=== PATIENT | male | born 1995 | race Caucasian/White ===

== ENCOUNTER 2020-08-11 14:23 | Emergency (ER) | payer BC ==
[~2020-08-11] VITALS: Ht 190.5 cm; Wt 68.5 kg
--- NOTE | 2020-08-11 14:44 | NUR ---
PROVIDER AT BEDSIDE
--- NOTE | 2020-08-11 14:47 | NUR ---
PT COMES IN C/O LEFT CHEST PAIN/TIGHTNESS/PALPITATIONS. PT STATES "I AM AWAKE AND CONSCIOUS AND CAN FEEL MY HEART BEATING FAST". PT DENIES ANY PAST MEDICAL HX. STATES HE HAS BEEN TOLD HE HAS HIGH BLOOD PRESSURE AND SHOULD FOLLOWUP WITH A PCP "BUT HAVENT BEEN ABLE TO DO THAT YET". 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 PT STATES HE WAS COVID + 07/27/2020. EKG COMPLETE. MONITORS CONNECTED. WARM BLANKETS PROVIDED. CALL LIGHT W/IN REACH.
[2020-08-11] MEDS ORDERED: MAALOX/HYOSCYAMINE/LIDOCAINE 45 ML BTL ONE (15:12)
--- NOTE | 2020-08-11 15:15 | NUR ---
ORDERED MEDICATIONS ADMINISTERED. LAB AND XRAY AT BEDSIDE. PT RESTING ON GURNEY. VSS. NAD. CALL LIGHT W/IN REACH
[2020-08-11 15:24] LABS: BASOPHILS % (AUTO) 1 % (0-1); EOSINOPHILS % (AUTO) 0 % (1-7); LYMPHOCYTES % (AUTO) 16 % (22-44); MEAN CORPUSCULAR HEMOGLOBIN 31.7 pg (27.5-34.5); MEAN CORPUSCULAR HGB CONC 34.8 g/dL (33.2-36.2); MEAN PLATELET VOLUME 6.7 fL (7.4-10.4); MONOCYTES % (AUTO) 11 % (2-9); NEUTROPHILS % (AUTO) 72 % (42-75); PLATELET COUNT 263 x10^3/uL (130-400); RED BLOOD COUNT 5.69 x10^6/uL (4.38-5.82); RED CELL DISTRIBUTION WIDTH 13.6 % (9.4-14.8)
[2020-08-11 15:25] LABS: MD NO
[2020-08-11] MEDS ORDERED: MAALOX/HYOSCYAMINE/LIDOCAINE 45 ML BTL PO ONE (15:30)
[2020-08-11 15:34] LABS: ALBUMIN 5.1 g/dL (3.4-5.0); ANION GAP 10 mmol/L (5-15); C-REACTIVE PROTEIN, QUANT 0.07 mg/dL (0.02-0.49); CHLORIDE 102 mmol/L (98-107); CREATININE 0.78 mg/dL (0.7-1.3)
[2020-08-11 15:44] LABS: TROPONIN I < 0.015 ng/mL (0.000-0.045)
[2020-08-11 16:18] VITALS: BP 144/90
--- NOTE | 2020-08-11 16:18 | NUR ---
PT AMBULATED TO DISCHARGE WITH STEADY GAIT. PT ENCOURAGED TO FOLLOWUP DISCUSSED. PT EDUCATED TO RETURN TO THE ED WITH WORSENING SYMPTOMS.
== END 2020-08-11 16:21 | disposition home or self-care (01) ==
LOC: ED 15:02
DX: R07.89 Other chest pain (principal); I49.3 Ventricular premature depolarization; R94.31 Abnormal electrocardiogram [ECG] [EKG]
CPT/HCPCS: 36415; 71045; 80048; 82040; 83735; 84443; 84484; 85025; 86140; 93005; 99285

== ENCOUNTER → 2020-10-29 | Outpatient (CLI) | payer BC | END | disposition home or self-care (01) | LOC: CFH 15:55 | PROVIDERS: ATTEND Internal Medicine Cardiovascular Disease | DX: R00.2 Palpitations (principal); R01.1 Cardiac murmur, unspecified | CPT/HCPCS: 93306 ==